=== PATIENT | male | born 1990 | race Caucasian/White ===

== ENCOUNTER 2020-05-10 00:07 | Emergency (ER) | payer OTHER ==
[~2020-05-10] VITALS: Ht 200.7 cm; Wt 127.0 kg
[~2020-05-10 00:07] MED LIST: AMOXICILLIN 50500 MG PO; AMOXICILLIN875 MG PO; APAP500; CLEOCIN HCL300 MG PO; HYDROCODON-ACE1 EAC7 PO; IBUPROFEN 800800 MG PO; NAPROSYN500 MG PO; NOHOMEMEDICATIONS; NORCO 5-325 TA1 EACH PO; PENICILLIN VK250 MG PO; PEPCID40 MG PO; PRILOSEC 20 MG20 MG PO; ULTRAM 50MG TAB50 MG PO
[2020-05-10 00:41] LABS: ABSOLUTE EOSINOPHILS 0.2 thou/uL (0.0-0.7); ABSOLUTE LYMPHOCYTES 3.8 thou/uL (0.8-5.3); ABSOLUTE MONOCYTES 0.5 thou/uL (0.0-1.2); ABSOLUTE NEUTROPHILS 5.1 thou/uL (1.6-8.1); BASOPHILS 0.4 %; EOSINOPHILS 2.4 %; HEMATOCRIT 43.6 % (42.0-52.0); HEMOGLOBIN 14.4 gm/dL (14.0-18.0); LYMPHOCYTES 38.9 %; MCH 27.4 pg (26.0-34.0); MCHC 33.1 g/dL (28.0-37.0); MCV 82.8 fL (80.0-100.0); MONOCYTES 5.4 %; MPV 7.3 fl. (7.2-11.1); NUCLEATED RBCS 0 /100WBC; PLATELET COUNT* 268 thou/uL (150-400); POLYS 52.9 %; RBC 5.27 mil/uL (4.50-6.00); RDW-CV 13.9 % (10.5-14.5); WBC 9.7 thou/uL (4.0-11.0)
[2020-05-10 00:46] LABS: CALCIUM 9.2 mg/dL (8.5-10.1); POTASSIUM 4.3 mmol/L (3.5-5.1)
[2020-05-10 00:50] LABS: ALBUMIN 4.2 g/dL (3.4-5.0); TOTAL BILIRUBIN 0.4 mg/dL (<0.1-1.0); TOTAL PROTEIN 7.9 g/dL (6.4-8.2)
[2020-05-10] MEDS ORDERED: CARAFATE 1 GM TA1 GM PO (00:58)
[2020-05-10 01:05] VITALS: BP 147/89
== END 2020-05-10 01:05 | disposition home or self-care (01) ==
LOC: M.ERS 00:07
PROVIDERS: Emergency Medicine
DX: R10.13 Epigastric pain (principal); R42 Dizziness and giddiness; K21.9 Gastro-esophageal reflux disease without esophagitis; F17.210 Nicotine dependence, cigarettes, uncomplicated; Z90.49 Acquired absence of other specified parts of digestive tract

== ENCOUNTER 2020-06-03 17:46 | Emergency (ER) | payer OTHER ==
[~2020-06-03] VITALS: Ht 200.7 cm; Wt 127.0 kg
[~2020-06-03 17:46] MED LIST changes: +CARAFATE 1 GM TA1 GM PO
[2020-06-03 18:39] LABS: URINE BILIRUBIN NEGATIVE (Negative); URINE BLOOD NEGATIVE (Negative); URINE CLARITY CLEAR; URINE COLOR YELLOW; URINE GLUCOSE-RANDOM NEGATIVE (Negative); URINE KETONES NEGATIVE (Negative); URINE LEUKOCYTES-REFLEX NEGATIVE (Negative); URINE NITRITE-REFLEX NEGATIVE (Negative); URINE PROTEIN NEGATIVE (Negative); URINE SPECIFIC GRAVITY 1.025 (1.005-1.030); URINE UROBILINOGEN 0.2 E.U./dl (0.2-1.0)
[2020-06-03 18:40] LABS: ABSOLUTE EOSINOPHILS 0.2 thou/uL (0.0-0.7); ABSOLUTE LYMPHOCYTES 2.7 thou/uL (0.8-5.3); ABSOLUTE MONOCYTES 0.5 thou/uL (0.0-1.2); ABSOLUTE NEUTROPHILS 5.1 thou/uL (1.6-8.1); BASOPHILS 0.4 %; EOSINOPHILS 1.9 %; HEMATOCRIT 43.5 % (42.0-52.0); HEMOGLOBIN 14.1 gm/dL (14.0-18.0); LYMPHOCYTES 32.1 %; MCHC 32.5 g/dL (28.0-37.0); MCV 83.1 fL (80.0-100.0); MONOCYTES 6.2 %; MPV 7.3 fl. (7.2-11.1); NUCLEATED RBCS 0 /100WBC; PLATELET COUNT* 283 thou/uL (150-400); POLYS 59.4 %; RBC 5.23 mil/uL (4.50-6.00); RDW-CV 14.3 % (10.5-14.5); WBC 8.6 thou/uL (4.0-11.0)
[2020-06-03 18:47] LABS: POTASSIUM 3.8 mmol/L (3.5-5.1)
[2020-06-03 18:52] LABS: ALBUMIN 4.6 g/dL (3.4-5.0); TOTAL BILIRUBIN 0.6 mg/dL (<0.1-1.0); TOTAL PROTEIN 8.6 g/dL (6.4-8.2)
[2020-06-03] MEDS ORDERED: ZOFRAN ODT4 MG PO (20:25)
[2020-06-03] MEDS ORDERED: BENTYL 10 MG CA10 M1 PO (20:25)
[2020-06-03] MEDS ORDERED: OMEPRAZOLE 20 M20 M1 PO (20:25)
[2020-06-03 20:47] VITALS: BP 124/60
--- NOTE | 2020-06-04 09:47 | EKG ---
[place] [address] ELECTROCARDIOGRAM REPORT Name: MARIELTANNER JOSELIN Room: [facility]#: [id number] Admission: 06/03/20 Attend Phys: Discharge: 06/03/20 Date of : [birth year] Date of Service: 06/03/201819 Report #: [id number] THIS REPORT FOR: //name// [facility] ED Test Date: 2020-06-03 Test Time: 18:20:26 Pat Name: TANNER FLOYD Department: Room: Gender: Data Developer: [facility] : 1990 Requested By: Camille Nix Order Number: [id number] MD: Chapincito Garcia Measurements Intervals [place] Rate: 72 P: 46 W[place]: 149 QRS: 52 QRSD: 103 T: 24 QT: 364 QTc: 399 Interpretive Statements Sinus rhythm ST elev, probable normal early repol pattern Baseline wander in lead(s) I,III,aVL,V2,V3 Compared to ECG 01/29/2015 15:32:09 no change Electronically Signed On 06-04-2020 9:47:43 CDT by Chapinicto Garcia [email or web address] <ELECTRONICALLY SIGNED> By: Chapincito Garcia MD, [facility] 06/04/20 0947 1820 1820 Chapincito Garcia MD, [facility] /EPI
== END 2020-06-03 20:47 | disposition home or self-care (01) ==
LOC: M.ERS 17:46
PROVIDERS: Nurse Practitioner Family
DX: K21.9 Gastro-esophageal reflux disease without esophagitis (principal); Z90.49 Acquired absence of other specified parts of digestive tract; F17.210 Nicotine dependence, cigarettes, uncomplicated; Z88.8 Allergy status to other drugs, medicaments and biological substances

== ENCOUNTER 2020-06-05 08:32 | Emergency (ER) | payer OTHER ==
[~2020-06-05] VITALS: Ht 200.7 cm; Wt 127.0 kg
[~2020-06-05 08:32] MED LIST changes: +BENTYL 10 MG CA10 M1 PO; +OMEPRAZOLE 20 M20 M1 PO; +ZOFRAN ODT4 MG PO
[2020-06-05 08:40] VITALS: BP 142/79
[2020-06-05] MEDS ORDERED: AMOXICILLIN875 MG PO (08:52)
== END 2020-06-05 09:00 | disposition home or self-care (01) ==
LOC: M.ERS 08:32
DX: K02.9 Dental caries, unspecified (principal); K21.9 Gastro-esophageal reflux disease without esophagitis; F17.210 Nicotine dependence, cigarettes, uncomplicated; Z90.49 Acquired absence of other specified parts of digestive tract; Z79.899 Other long term (current) drug therapy; Z88.8 Allergy status to other drugs, medicaments and biological substances

== ENCOUNTER 2020-06-29 15:42 | Emergency (ER) | payer OTHER ==
[~2020-06-29] VITALS: Ht 200.7 cm; Wt 122.5 kg
[2020-06-29 16:05] LABS: URINE BILIRUBIN NEGATIVE (Negative); URINE BLOOD NEGATIVE (Negative); URINE CLARITY CLEAR; URINE COLOR YELLOW; URINE GLUCOSE-RANDOM NEGATIVE (Negative); URINE KETONES NEGATIVE (Negative); URINE LEUKOCYTES-REFLEX NEGATIVE (Negative); URINE NITRITE-REFLEX NEGATIVE (Negative); URINE PROTEIN NEGATIVE (Negative); URINE SPECIFIC GRAVITY <= 1.005 (1.005-1.030); URINE UROBILINOGEN 0.2 E.U./dl (0.2-1.0)
[2020-06-29 16:30] LABS: ABSOLUTE BASOPHILS 0.1 thou/uL (0.0-0.2); ABSOLUTE EOSINOPHILS 0.1 thou/uL (0.0-0.7); ABSOLUTE LYMPHOCYTES 2.2 thou/uL (0.8-5.3); ABSOLUTE MONOCYTES 0.5 thou/uL (0.0-1.2); ABSOLUTE NEUTROPHILS 6.4 thou/uL (1.6-8.1); BASOPHILS 0.6 %; EOSINOPHILS 0.6 %; HEMATOCRIT 43.9 % (42.0-52.0); HEMOGLOBIN 14.3 gm/dL (14.0-18.0); LYMPHOCYTES 23.7 %; MCHC 32.4 g/dL (28.0-37.0); MCV 83.1 fL (80.0-100.0); MONOCYTES 5.4 %; MPV 7.4 fl. (7.2-11.1); NUCLEATED RBCS 0 /100WBC; PLATELET COUNT* 275 thou/uL (150-400); POLYS 69.7 %; RBC 5.29 mil/uL (4.50-6.00); RDW-CV 14.9 % (10.5-14.5); WBC 9.2 thou/uL (4.0-11.0)
[2020-06-29 16:42] LABS: CALCIUM 9.5 mg/dL (8.5-10.1); POTASSIUM 3.7 mmol/L (3.5-5.1)
[2020-06-29 16:46] LABS: ALBUMIN 4.7 g/dL (3.4-5.0); TOTAL BILIRUBIN 0.7 mg/dL (<0.1-1.0); TOTAL PROTEIN 8.6 g/dL (6.4-8.2)
[2020-06-29] MEDS ORDERED: IBUPROFEN 800800 M1 PO ×2 (17:13→17:17)
[2020-06-29] MEDS ORDERED: FLEXERIL PO ×2 (17:13→17:17)
[2020-06-29 17:22] VITALS: BP 124/72
[2020-07-01] MEDS ORDERED: FLONASE 0.05%50 MCG NASAL (14:03)
[2020-07-01] MEDS ORDERED: ZYRTEC10 M4 PO (14:03)
--- NOTE | 2020-07-02 10:45 | EKG ---
[place] [address] ELECTROCARDIOGRAM REPORT Name: MARIELTANNER OLIVERA Room: [facility]#: [id number] Admission: 06/29/20 Attend Phys: Discharge: 06/29/20 Date of : [birth year] Date of Service: 06/29/20 1631 Report #: [id number] THIS REPORT FOR: //name// [facility] ED Test Date: 2020-06-29 Test Time: 16:31:17 Pat Name: TANNER FLOYD Department: Room: Gender: Care Professionals: [place] : 1990 Requested By: David Mei Order Number: [id number] MD: Chapincito Garcia Measurements Intervals [place] Rate: 78 P: 39 [place]: 145 QRS: 45 QRSD: 105 T: 29 QT: 347 QTc: 396 Interpretive Statements Sinus rhythm ST elev, probable normal early repol pattern Compared to ECG 06/03/2020 18:20:26 No significant changes Electronically Signed On 07-02-2020 10:45:25 CDT by Chapincito Garcia [email or web address] <ELECTRONICALLY SIGNED> By: Chapincito Garcia MD, [facility] 07/02/20 1045 1631 1631 Chapincito Garcia MD, [facility] /EPI
== END 2020-06-29 17:23 | disposition home or self-care (01) ==
LOC: M.ERS 15:42
PROVIDERS: Emergency Medicine Emergency Medical Services
DX: S39.012A Strain of muscle, fascia and tendon of lower back, initial encounter (principal); R10.11 Right upper quadrant pain; R10.12 Left upper quadrant pain; K21.9 Gastro-esophageal reflux disease without esophagitis; F17.210 Nicotine dependence, cigarettes, uncomplicated; Z90.49 Acquired absence of other specified parts of digestive tract; X50.9XXA Other and unspecified overexertion or strenuous movements or postures, initial encounter; Y93.89 Activity, other specified; Y92.89 Other specified places as the place of occurrence of the external cause; Y99.8 Other external cause status

== ENCOUNTER 2020-07-11 14:42 | Emergency (ER) | payer OTHER ==
[~2020-07-11] VITALS: Ht 200.7 cm; Wt 122.5 kg
[~2020-07-11 14:42] MED LIST changes: +FLEXERIL PO; +FLONASE 0.05%50 MCG NASAL; +IBUPROFEN 800800 M1 PO; +ZYRTEC10 M4 PO
[2020-07-11] MEDS ORDERED: SINGULAIR 10 MG10 M1 PO (15:28)
[2020-07-11 15:38] VITALS: BP 145/80
== END 2020-07-11 15:39 | disposition home or self-care (01) ==
LOC: M.ERS 14:42
DX: J30.9 Allergic rhinitis, unspecified (principal); G89.29 Other chronic pain; R09.82 Postnasal drip; M54.5 Low back pain; K21.9 Gastro-esophageal reflux disease without esophagitis; F17.210 Nicotine dependence, cigarettes, uncomplicated; Z90.49 Acquired absence of other specified parts of digestive tract; Z79.899 Other long term (current) drug therapy

== ENCOUNTER 2020-08-27 10:52 | Emergency (ER) | payer OTHER ==
[~2020-08-27] VITALS: Ht 200.7 cm; Wt 117.9 kg
[~2020-08-27 10:52] MED LIST changes: +SINGULAIR 10 MG10 M1 PO
[2020-08-27] MEDS ORDERED: NAPROSYN500 MG PO (12:51)
[2020-08-27 13:06] VITALS: BP 134/70
== END 2020-08-27 13:08 | disposition home or self-care (01) ==
LOC: M.ERS 10:52
DX: M25.572 Pain in left ankle and joints of left foot (principal); R60.0 Localized edema; F17.210 Nicotine dependence, cigarettes, uncomplicated; K21.9 Gastro-esophageal reflux disease without esophagitis; Z90.49 Acquired absence of other specified parts of digestive tract

== ENCOUNTER 2020-12-17 17:01 | Emergency (ER) | payer OTHER, BC ==
[~2020-12-17] VITALS: Ht 200.7 cm; Wt 117.9 kg
[2020-12-17 18:14] LABS: ABSOLUTE BASOPHILS 0.1 thou/uL (0.0-0.2); ABSOLUTE EOSINOPHILS 0.1 thou/uL (0.0-0.7); ABSOLUTE LYMPHOCYTES 2.8 thou/uL (0.8-5.3); ABSOLUTE MONOCYTES 0.6 thou/uL (0.0-1.2); ABSOLUTE NEUTROPHILS 5.5 thou/uL (1.6-8.1); BASOPHILS 0.7 %; EOSINOPHILS 1.4 %; HEMATOCRIT 42.9 % (42.0-52.0); HEMOGLOBIN 14.3 gm/dL (14.0-18.0); LYMPHOCYTES 31.2 %; MCH 27.6 pg (26.0-34.0); MCHC 33.3 g/dL (28.0-37.0); MCV 82.9 fL (80.0-100.0); MONOCYTES 6.8 %; MPV 7.3 fl. (7.2-11.1); NUCLEATED RBCS 0 /100WBC; PLATELET COUNT* 258 thou/uL (150-400); POLYS 59.9 %; RBC 5.17 mil/uL (4.50-6.00); RDW-CV 14.4 % (10.5-14.5); WBC 9.1 thou/uL (4.0-11.0)
[2020-12-17 18:23] LABS: CALCIUM 9.3 mg/dL (8.5-10.1); POTASSIUM 4.6 mmol/L (3.5-5.1)
[2020-12-17 18:27] LABS: ALBUMIN 4.5 g/dL (3.4-5.0); TOTAL BILIRUBIN 0.4 mg/dL (<0.1-1.0); TOTAL PROTEIN 8.1 g/dL (6.4-8.2)
[2020-12-17 18:35] LABS: URINE BILIRUBIN NEGATIVE (Negative); URINE BLOOD NEGATIVE (Negative); URINE CLARITY CLEAR; URINE COLOR YELLOW; URINE GLUCOSE-RANDOM NEGATIVE (Negative); URINE KETONES NEGATIVE (Negative); URINE LEUKOCYTES-REFLEX NEGATIVE (Negative); URINE NITRITE-REFLEX NEGATIVE (Negative); URINE PROTEIN NEGATIVE (Negative); URINE SPECIFIC GRAVITY 1.015 (1.005-1.030); URINE UROBILINOGEN 0.2 E.U./dl (0.2-1.0)
[2020-12-17] MEDS ORDERED: MEDROLDOSEPACK PO (19:29)
[2020-12-17] MEDS ORDERED: FLEXERIL PO (19:29)
[2020-12-17] MEDS ORDERED: HYDROCODON-ACE1 EAC8 PO (19:36)
[2020-12-17 19:53] VITALS: BP 123/70
== END 2020-12-17 19:53 | disposition home or self-care (01) ==
LOC: M.ERS 17:01
PROVIDERS: Nurse Practitioner Family
DX: M54.9 Dorsalgia, unspecified (principal); K21.9 Gastro-esophageal reflux disease without esophagitis; F17.210 Nicotine dependence, cigarettes, uncomplicated; Z90.89 Acquired absence of other organs